=== PATIENT | male | born 1995 | race Caucasian/White ===

== ENCOUNTER 2021-04-12 19:07 | Emergency (ER) | payer SELFPAY ==
[2021-04-12 19:11] VITALS: BP 114/64; PULSE 74
--- NOTE | 2021-04-12 20:09 | EDM.PDOC ---
ED HPI GENERAL MEDICAL PROBLEM - General Chief Complaint: Laceration Stated Complaint: lacertation to L)4th toe Time Seen by Provider: 04/12/21 19:30 Source of Information: Reports: Patient History Limitations: Reports: No Limitations - History of Present Illness INITIAL COMMENTS - FREE TEXT/NARRATIVE: This patient is a 25 year old male that presents to the ER. Patient reports his son removed the heater grate from the floor. He reports he was walking up the stairs in the dark and stepped on the metal heater grate cutting his left foot. Onset: Today Onset Date: 04/12/21 Onset Time: 19:00 Location: Reports: Lower Extremity, Left Front/Back Body Image: 1 - laceration Quality: Reports: Ache Severity: Mild Improves with: Reports: None Worsens with: Reports: None Associated Symptoms: Reports: No Other Symptoms Left Toe-Ring Pain Score (Numeric/FACES): 7 - Related Data Allergies Allergy/AdvReac Type Severity Reaction Status Date / Time oxcarbazepine Allergy Hives Verified 04/12/21 19:12 [From Trileptal] quetiapine fumarate Allergy Hives Verified 04/12/21 19:12 [From Seroquel] Home Meds: Home Meds . [No Known Home Meds] 06/17/15 [History] Past Medical History - Past Health History Medical/Surgical History: Denies Medical/Surgical History Respiratory History: Reports: Asthma Gastrointestinal History: Reports: Cholelithiasis Musculoskeletal History: Reports: Fracture Other Musculoskeletal History: rib and jaw. Psychiatric History: Reports: ADHD, Bipolar - Past Surgical History GI Surgical History: Reports: Cholecystectomy Social & Family History - Family History Family Medical History: No Pertinent Family History - Tobacco Use Tobacco Use Status *Q: Current Every Day Tobacco User Years of Tobacco use: 10 Packs/Tins Daily: 1 - Caffeine Use Caffeine Use: Reports: Energy Drinks - Recreational Drug Use Recreational Drug Use: Yes Recreational Drug Type: Reports: Marijuana/Hashish ED ROS GENERAL - Review of Systems Review Of Systems: See Below Constitutional: Reports: No Symptoms HEENT: Reports: No Symptoms Respiratory: Reports: No Symptoms Cardiovascular: Reports: No Symptoms GI/Abdominal: Reports: No Symptoms Musculoskeletal: Reports: Foot Pain (left 5th/4th digit toe) Skin: Reports: Wound (laceration between left 4th/5th toe) Neurological: Reports: No Symptoms Psychiatric: Reports: No Symptoms Hematologic/Lymphatic: Reports: No Symptoms Immunologic: Reports: No Symptoms ED EXAM, SKIN/RASH Exam: See Below Exam Limited By: No Limitations General Appearance: Alert, WD/WN, No Apparent Distress, Anxious Respiratory/Chest: No Respiratory Distress, Lungs Clear, Normal Breath Sounds, No Accessory Muscle Use Cardiovascular: Normal Peripheral Pulses, Regular Rate, Rhythm, No Edema Extremities: Normal Range of Motion, No Pedal Edema, Normal Capillary Refill, Other (mild tenderness at laceration site of the 5th/4th digit toe webspace: ROM intact. neurovascular intact. pulses +2, cap refill < 2 sec. ) Neurological: Alert, Oriented Psychiatric: Anxious Skin: Warm, Dry, Normal Color, No Rash, Wound/Incision (laceration left 4th/5th toe webspace) Location, Skin: Lower Extremity, Left ED SKIN PROCEDURES - Laceration/Wound Repair Left Toe - Fourth Appearance: Subcutaneous, Other (in webspace) Distal NVT: Neuro & Vascular Intact, No Tendon Injury Anesthetic Type: Local Local Anesthesia - Lidocaine (Xylocaine): 1% Plain Local Anesthetic Volume: 2cc Skin Prep: Chlorhexidine (Hibiciens) Saline Irrigation (cc's): 30 Exploration/Debridement/Repair: Wound Explored, In a Bloodless Field, Explored to Base, No Foreign Material Found Closed with: Sutures Lac/Wound length In cm: 2 Suture Size: 5-0 # of Sutures: 2 Suture Type: Nylon Tetanus Status Addressed: Yes (UTD) Complications: No Course - Vital Signs Last Recorded V/S: Last Vital Signs Temp 96.6 F L 04/12/21 19:08 Pulse 74 04/12/21 19:08 Resp 18 04/12/21 19:08 BP 114/64 04/12/21 19:08 Pulse Ox 98 04/12/21 19:08 - Orders/Labs/Meds Orders: Active Orders 24 hr Category Date Time Status Foot 2V Lt [CR] Stat Exams 04/12/21 19:41 Taken Meds: Medications Discontinued Medications Generic Name Dose Route Start Last Admin Trade Name Freq PRN Reason Stop Dose Admin Lidocaine HCl 5 ml 04/12/21 19:43 04/12/21 19:49 Lidocaine 1% 5 Ml Sdv INJECT 04/12/21 19:44 5 ml ONETIME ONE Administration - Radiology Interpretation Free Text/Narrative:: Left foot xray: no fracture, no fb. Soft tissue injury 03/04 webspace Departure - Departure Time of Disposition: 20:04 Disposition: Home, Self-Care 01 Condition: Fair Clinical Impression: Laceration - Discharge Information *PRESCRIPTION DRUG MONITORING PROGRAM REVIEWED*: Not Applicable *COPY OF PRESCRIPTION DRUG MONITORING REPORT IN PATIENT ALEJANDRO: Not Applicable Instructions: Laceration Care, Adult, Sutures, Christine, or Adhesive Wound Closure, [id number] Referrals: PCP,None [Primary Care Provider] - Forms: ED Department Discharge Additional Instructions: Followup with clinic in about 7 days for suture removal and evaluation Return to the ER for worsening of condition or any emergent concerns such as fever, redness, vomiting, drainage, or other concerns Wash the wound gently with soap and water twice a day gently, rinse, pat dry. Keep clean Crutches as needed to not bear weight on the left foot so sutures do not pop out Sepsis Event Note (ED) - Evaluation Sepsis Screening Result: No Definite Risk - My Orders Last 24 Hours: My Active Orders 04/12/21 19:41 Foot 2V Lt [CR] Stat - Assessment/Plan Last 24 Hours: My Active Orders 04/12/21 19:41 Foot 2V Lt [CR] Stat Plan: PLEASE SEE RN NOTE FOR PFSH
== END 2021-04-12 20:20 | disposition home or self-care (01) ==
LOC: CC.ED 19:07
DX: S91.115A Laceration without foreign body of left lesser toe(s) without damage to nail, initial encounter (principal); Z72.0 Tobacco use; Z88.5 Allergy status to narcotic agent; Z88.8 Allergy status to other drugs, medicaments and biological substances; W26.8XXA Contact with other sharp object(s), not elsewhere classified, initial encounter
CPT/HCPCS: 12001; 73620-LT; 99283-25